=== PATIENT | male | born 1945 | race Caucasian/White ===

== ENCOUNTER 2024-11-06 08:10 | Inpatient (IN) | payer MEDICARE ==
[~2024-11-06] VITALS: Ht 160 cm; Wt 58.1 kg
[2024-11-06 01:49] VITALS: BP 117/52; PULSE 55; RESP 18; TEMP 98.6; O2SAT 100
[2024-11-06 09:26] LABS: BASOPHILS % 0.2 % (0.0-1.0); EOSINOPHILS % 0.8 % (0.0-6.0); HEMATOCRIT 29.5 % (38.2-49.6); HEMOGLOBIN 9.8 g/dL (14.0-18.0); LYMPHOCYTES # (AUTO) 0.6 (1.0-3.2); LYMPHOCYTES % 11.7 % (18.0-39.1); MEAN CORPUSCULAR HEMOGLOBIN 30.8 pg (28-32); MEAN CORPUSCULAR HGB CONC 33.2 g/dL (31-35); MEAN CORPUSCULAR VOLUME 92.8 fL (81-99); MONOCYTES # (AUTO) 0.3 (0.2-0.8); MONOCYTES % 6.2 % (4.4-11.3); NEUTROPHILS # (AUTO) 3.9 (2.1-6.9); NEUTROPHILS % 80.5 % (38.7-80.0); RED BLOOD COUNT 3.18 x10e6/uL (4.3-5.7); WHITE BLOOD COUNT 4.86 x10e3/uL (4.8-10.8)
[2024-11-06 09:28] LABS: PLATELET COUNT 72 x10e3/uL (140-360)
[2024-11-06 09:41] LABS: INR 1.26; PROTHROMBIN TIME 16.9 seconds (11.9-14.5)
[2024-11-06 09:42] LABS: PARTIAL THROMBOPLASTIN TIME 36.5 seconds (23.8-35.5)
[2024-11-06 09:46] LABS: AMPHETAMINES SCREEN,URINE NEGATIVE (NEGATIVE); BENZODIAZEPINES SCREEN,URINE NEGATIVE (NEGATIVE); BILIRUBIN,URINE NEGATIVE (NEGATIVE); CANNABINOIDS SCREEN,URINE POSITIVE (NEGATIVE); CLARITY,URINE CLOUDY (CLEAR); COCAINE SCREEN,URINE NEGATIVE (NEGATIVE); COLOR,URINE YELLOW (YELLOW); GLUCOSE, URINE 1+ (NEGATIVE); KETONES,URINE TRACE (NEGATIVE); LEUKOCYTE ESTERASE ,URINE SMALL (NEGATIVE); METHADONE SCREEN, URINE NEGATIVE (NEGATIVE); NITRITE,URINE POSITIVE (NEGATIVE); OPIATES SCREEN,URINE NEGATIVE (NEGATIVE); PH,URINE 7 (5 - 7); PHENCYCLIDINE SCREEN,URINE NEGATIVE (NEGATIVE); PROTEIN,URINE DIPSTICK 1+ (NEGATIVE); URINE UROBILINOGEN 0.2 mg/dL (0.2 - 1)
[2024-11-06 09:49] LABS: ALANINE AMINOTRANSFERASE 27 IU/L (0-55); ALKALINE PHOSPHATASE 155 IU/L (40-150); BILIRUBIN,TOTAL 2.1 mg/dL (0.2-1.2); CALCIUM 8.3 mg/dL (8.4-10.2); CARBON DIOXIDE 21 mmol/L (22-29); CHLORIDE 106 mmol/L (98-107); CREATINE KINASE 39 IU/L (30-200); GLUCOSE 249 mg/dL (74-118); MAGNESIUM 1.9 MG/DL (1.3-2.1); SODIUM 137 mmol/L (136-145); TOTAL PROTEIN 7.9 g/dL (6.5-8.1)
[2024-11-06 09:50] LABS: ACETAMINOPHEN < 3.0 ug/mL (10-30); ETHANOL < 10.0 mg/dL (0.0-10.0); SALICYLATE < 5.0 mg/dL (0-30)
[2024-11-06 09:53] LABS: B-TYPE NATRIURETIC PEPTIDE2 276.4 pg/mL (0-100)
[2024-11-06 09:55] LABS: TROPONIN I 0.008 ng/mL (0-0.300)
[2024-11-06 10:02] LABS: ALBUMIN 2.5 g/dL (3.5-5.0); ALBUMIN/GLOBULIN RATIO 0.5 (0.8-2.0); BLOOD UREA NITROGEN 22 mg/dL (7-26); BUN/CREATININE RATIO 17 (6-25); CREATININE, SERUM 1.32 mg/dL (0.72-1.25); EST GLOMERULAR FILTRATION RATE 55 ML/MIN (>=60)
[2024-11-06 10:18] LABS: BACTERIA,URINE MANY /HPF; EPITHELIAL CELLS,URINE FEW /LPF; RBC,URINE 0-5 /HPF (0-5)
[2024-11-06] MEDS: SODIUM CHLORIDE 0.9% 500ML 500 ML IV ONE (10:27)
[2024-11-06] MEDS ORDERED: LACTULOSE SYRUP 20 GM/30 ML UDC PO PRN (11:00)
[2024-11-06] MEDS: SODIUM CHLORIDE 0.9% 1000ML 1,000 ML IV ONE (11:35)
[2024-11-06 13:10] LABS: TROPONIN I 0.016 ng/mL (0-0.300)
[2024-11-06] MEDS: DIPHENHYDRAMINE HCL INJ 50 MG/ML VIAL IV ONE (14:10)
[2024-11-06] MEDS: LACTULOSE SYRUP 20 GM/30 ML UDC PO SCH ×2 (14:10→21:34)
[2024-11-06] MEDS ORDERED: AMIODARONE HCL200 MG PO (14:11)
[2024-11-06] MEDS ORDERED: ESOMEPRAZOLE MA40 MG PO (14:11)
[2024-11-06] MEDS ORDERED: ALDACTONE25 MG PO (14:11)
[2024-11-06] MEDS ORDERED: FLOMAX0.4 MG PO (14:11)
[2024-11-06] MEDS ORDERED: ENULOSE10 GM/15 M PO (14:11)
[2024-11-06] MEDS ORDERED: LOSARTAN POTASS25 MG PO (14:11)
[2024-11-06] MEDS ORDERED: FUROSEMIDE40 MG PO (14:11)
[2024-11-06] MEDS ORDERED: ASPIRIN EC81 MG PO (14:11)
[2024-11-06] MEDS ORDERED: PROSCAR5 MG PO (14:11)
[2024-11-06] MEDS ORDERED: LIPITOR20 MG PO (14:11)
[2024-11-06] MEDS ORDERED: FERATE240 MG PO (14:11)
[2024-11-06] MEDS ORDERED: METOPROLOL SUCC25 MG PO (14:11)
[2024-11-06] MEDS ORDERED: LEVOTHYROXINE75 MCG PO (14:11)
[2024-11-06] MEDS: ONDANSETRON HCL INJ 2MG/ML 2ML 2 MG/ML VIAL IV PRN (14:37)
[2024-11-06 19:59] VITALS: PULSE 62; RESP 16; TEMP 98.4
[2024-11-06 20:02] VITALS: BP 143/64; PULSE 61; RESP 18; TEMP 97.6; O2SAT 100
[2024-11-07] VITALS (7 sets, daily range): BP systolic 107–127; BP diastolic 50–62; PULSE 54–108; RESP 18–20; TEMP 97.7–98.6; O2SAT 100
[2024-11-07 07:01] LABS: BASOPHILS % 0.3 % (0.0-1.0); EOSINOPHILS % 1.2 % (0.0-6.0); HEMATOCRIT 28.6 % (38.2-49.6); HEMOGLOBIN 9.2 g/dL (14.0-18.0); LYMPHOCYTES # (AUTO) 0.6 (1.0-3.2); LYMPHOCYTES % 18.8 % (18.0-39.1); MEAN CORPUSCULAR HEMOGLOBIN 30.9 pg (28-32); MEAN CORPUSCULAR HGB CONC 32.2 g/dL (31-35); MONOCYTES # (AUTO) 0.3 (0.2-0.8); MONOCYTES % 8.5 % (4.4-11.3); NEUTROPHILS # (AUTO) 2.4 (2.1-6.9); NEUTROPHILS % 70.9 % (38.7-80.0); PLATELET COUNT 51 x10e3/uL (140-360); RED BLOOD COUNT 2.98 x10e6/uL (4.3-5.7); RED CELL DISTRIBUTION WIDTH 19.4 % (11.7-14.4); WHITE BLOOD COUNT 3.41 x10e3/uL (4.8-10.8)
[2024-11-07 07:44] LABS: ALBUMIN 2.2 g/dL (3.5-5.0); ALBUMIN/GLOBULIN RATIO 0.4 (0.8-2.0); ANION GAP 12.6 mmol/L (8-16); BILIRUBIN,TOTAL 2.1 mg/dL (0.2-1.2); CALCIUM 7.8 mg/dL (8.4-10.2); CREATININE, SERUM 1.37 mg/dL (0.72-1.25); POTASSIUM 3.6 mmol/L (3.5-5.1); TOTAL PROTEIN 7.2 g/dL (6.5-8.1)
[2024-11-07 08:10] LABS: TROPONIN I 0.021 ng/mL (0-0.300)
[2024-11-07] MEDS: AMIODARONE HCL 200 MG TAB PO SCH (09:58)
[2024-11-07] MEDS: FINASTERIDE 5 MG TAB PO SCH (09:58)
[2024-11-07] MEDS: LEVOTHYROXINE SODIUM 75 MCG TAB PO SCH (09:58)
[2024-11-07] MEDS: ASPIRIN 81 MG ENTERIC COATED PO SCH (09:58)
[2024-11-07] MEDS: TAMSULOSIN HCL 0.4 MG CAP PO SCH (17:11)
[2024-11-08] VITALS: BP_SYST 119; BP_SYST 134; BP_DIAS 62; PULSE 108; PULSE 63; RESP 18; RESP 20; TEMP 98.2; TEMP 98.3; O2SAT 100
[2024-11-08] MEDS: LACTULOSE SYRUP 20 GM/30 ML UDC PO STA (00:39)
[2024-11-08] MEDS: RIFAXIMIN 550 MG TABLET PO STA (00:40)
[2024-11-08 04:00] VITALS: BP 135/67; PULSE 72; RESP 20; TEMP 98.8; O2SAT 100
[2024-11-08] MEDS: LACTULOSE SYRUP 20 GM/30 ML UDC PO SCH (06:04)
[2024-11-08 07:38] LABS: EOSINOPHILS # (AUTO) 0.1 (0.0-0.4); EOSINOPHILS % 1.5 % (0.0-6.0); HEMATOCRIT 25.1 % (38.2-49.6); HEMOGLOBIN 8.1 g/dL (14.0-18.0); LYMPHOCYTES # (AUTO) 0.5 (1.0-3.2); LYMPHOCYTES % 15.2 % (18.0-39.1); MEAN CORPUSCULAR HEMOGLOBIN 30.3 pg (28-32); MEAN CORPUSCULAR HGB CONC 32.3 g/dL (31-35); MONOCYTES # (AUTO) 0.3 (0.2-0.8); MONOCYTES % 8.5 % (4.4-11.3); NEUTROPHILS # (AUTO) 2.5 (2.1-6.9); NEUTROPHILS % 74.2 % (38.7-80.0); PLATELET COUNT 54 x10e3/uL (140-360); RED BLOOD COUNT 2.67 x10e6/uL (4.3-5.7); RED CELL DISTRIBUTION WIDTH 19.4 % (11.7-14.4); WHITE BLOOD COUNT 3.41 x10e3/uL (4.8-10.8)
[2024-11-08 07:40] LABS: ALANINE AMINOTRANSFERASE 21 IU/L (0-55); ALBUMIN/GLOBULIN RATIO -1.7 (0.8-2.0); ALKALINE PHOSPHATASE 125 IU/L (40-150); ANION GAP 9.8 mmol/L (8-16); BILIRUBIN,TOTAL 1.2 mg/dL (0.2-1.2); BLOOD UREA NITROGEN 16 mg/dL (7-26); BUN/CREATININE RATIO 13 (6-25); CALCIUM 7.5 mg/dL (8.4-10.2); CARBON DIOXIDE 15 mmol/L (22-29); CHLORIDE 116 mmol/L (98-107); CREATININE, SERUM 1.21 mg/dL (0.72-1.25); EST GLOMERULAR FILTRATION RATE 61 ML/MIN (>=60); GLUCOSE 215 mg/dL (74-118); POTASSIUM 3.8 mmol/L (3.5-5.1); SODIUM 137 mmol/L (136-145); TOTAL PROTEIN < 0.8 g/dL (6.5-8.1)
[2024-11-08 08:00] VITALS: BP 92/70; PULSE 72; RESP 18; TEMP 98.4; O2SAT 100
[2024-11-08] MEDS: RIFAXIMIN 550 MG TABLET PO SCH (08:55)
[2024-11-08] MEDS ORDERED: RIFAXIMIN 200 MG TAB PO SCH (09:00)
[2024-11-08 12:00] VITALS: BP 128/58; PULSE 74; RESP 17; TEMP 98.3; O2SAT 95
[2024-11-08] MEDS: MEROPENEM 1 GM in SODIUM CHLORIDE 0.9% 100 ML IV SCH (12:45)
[2024-11-08 20:00] VITALS: BP 122/61; PULSE 68; RESP 18; TEMP 98.1; O2SAT 100
[2024-11-08 21:00] VITALS: BP 122/61; PULSE 68; RESP 18; TEMP 98.1; O2SAT 100
[2024-11-09] VITALS: BP 127/85; PULSE 63; RESP 17; TEMP 98.4; O2SAT 100
[2024-11-09 04:00] VITALS: BP 102/54; PULSE 57; RESP 17; TEMP 98.4; O2SAT 100
[2024-11-09 07:12] LABS: % IRON SATURATION 57 % (15-50); IRON 75 ug/dL (65-175); TOTAL IRON BINDING CAPACITY 132 ug/dL (261-478); TRANSFERRIN 94 mg/dL (174-364)
[2024-11-09 09:15] VITALS: BP 106/56; PULSE 57; RESP 17; TEMP 98.1; O2SAT 96
== END 2024-11-09 13:15 | disposition home health service (06) | DRG 441 ==
LOC: ER 08:47 → ERHOLD 10:40 → MED/SURG3 20:18
PROVIDERS: ADMIT Internal Medicine; ATTEND Internal Medicine
DX: K76.82 Hepatic encephalopathy (principal); G92.8 Other toxic encephalopathy; D61.818 Other pancytopenia; I85.10 Secondary esophageal varices without bleeding; N39.0 Urinary tract infection, site not specified; Z16.12 Extended spectrum beta lactamase (ESBL) resistance; Z16.24 Resistance to multiple antibiotics; K76.6 Portal hypertension; B96.20 Unspecified Escherichia coli [E. coli] as the cause of diseases classified elsewhere; E86.0 Dehydration; N28.9 Disorder of kidney and ureter, unspecified; F10.21 Alcohol dependence, in remission; K70.30 Alcoholic cirrhosis of liver without ascites; D73.1 Hypersplenism; I10 Essential (primary) hypertension; E03.9 Hypothyroidism, unspecified; E11.9 Type 2 diabetes mellitus without complications; S50.312A Abrasion of left elbow, initial encounter; W19.XXXA Unspecified fall, initial encounter; Y92.002 Bathroom of unspecified non-institutional (private) residence as the place of occurrence of the external cause; K80.20 Calculus of gallbladder without cholecystitis without obstruction; R00.1 Bradycardia, unspecified; Z91.81 History of falling; Z79.899 Other long term (current) drug therapy; Z79.82 Long term (current) use of aspirin
CPT/HCPCS: 36415; 70450; 71045; 72125; 74176; 80053; 80307; 80320; 80329; 81001; 82140; 82550; 82607; 82746; 83540; 83735; 83880; 84466; 84484; 85025; 85045; 85610; 85730; 87086; 87186; 93005; 99252; 99284; J0696; J1200; J2185; J2405; J7030; J7040; J7050

== ENCOUNTER 2024-12-06 13:48 | Emergency (ER) | payer MEDICARE ==
[~2024-12-06] VITALS: Ht 165.1 cm; Wt 59.0 kg
[~2024-12-06 13:48] MED LIST: ALDACTONE25 MG PO; AMIODARONE HCL200 MG PO; ASPIRIN EC81 MG PO; ENULOSE10 GM/15 M PO; ESOMEPRAZOLE MA40 MG PO; FERATE240 MG PO; FLOMAX0.4 MG PO; FUROSEMIDE40 MG PO; LEVOTHYROXINE75 MCG PO; LIPITOR20 MG PO; LOSARTAN POTASS25 MG PO; METOPROLOL SUCC25 MG PO; PROSCAR5 MG PO
[2024-12-06 14:08] VITALS: TEMP 98.5
[2024-12-06 14:53] LABS: EST GLOMERULAR FILTRATION RATE 41.0 ML/MIN (>=60)
[2024-12-06 15:17] LABS: BASOPHILS % 0.0 % (0.0-1.0); EOSINOPHILS % 0.8 % (0.0-6.0); LYMPHOCYTES % 8.9 % (18.0-39.1); MONOCYTES % 5.3 % (4.4-11.3); NEUTROPHILS % 84.4 % (38.7-80.0); RED CELL DISTRIBUTION WIDTH 18.9 % (11.7-14.4)
[2024-12-06] MEDS ORDERED: INSULIN REGULAR, HUMAN 100 UNIT/1 ML IV ONE (16:15)
[2024-12-06] MEDS: INSULIN REGULAR, HUMAN 100 UNIT/1 ML SQ ONE (16:23)
[2024-12-06] MEDS ORDERED: METFORMIN HCL500 MG PO (16:28)
[2024-12-06 16:30] VITALS: PULSE 68; RESP 16; O2SAT 100
== END 2024-12-06 16:48 | disposition home or self-care (01) ==
LOC: ER 13:58
DX: R60.9 Edema, unspecified (principal); E11.65 Type 2 diabetes mellitus with hyperglycemia; I48.91 Unspecified atrial fibrillation; E03.9 Hypothyroidism, unspecified; E78.5 Hyperlipidemia, unspecified; K76.9 Liver disease, unspecified; D64.9 Anemia, unspecified; K21.9 Gastro-esophageal reflux disease without esophagitis
CPT/HCPCS: 36415; 71045; 80053; 83880; 85025; 99283